=== PATIENT | male | born 1975 | race Caucasian/White ===

== ENCOUNTER 2016-07-08 02:25 | Emergency (ER) | payer SELFPAY ==
--- NOTE | ~2016-07-08 | CR133 ---
[facility] A Service of [facility] & [facility] RADIOLOGY TEXT RESULTS PATIENT: DELILAH ALLEN LOCATION: SED : 71 UNIT #: [id number] AGE: [address]: John Agosto MD SEX: M ORDER DR: [id number] [place] [id number] E MR#: [id number] Acc #: [id number] NAME: DELILAH ALLEN : 1975 SEX: M STUDY DATE/TIME: 07/08/2016 1:58 UNIT: SED ROOM: STUDY DESCRIPTION: CR Forearm 2 View Rt Attending Physician: John Agosto M.D. Ordering Physician: John Agosto M.D. Primary Care Physician: No Primary Care Physician MEDICAL IMAGING REPORT This report is preliminary unless electronic signature is present. EXAM Right forearm HISTORY Acute pain in forearm. This morning fell. 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 No acute fracture or dislocation. Soft tissues unremarkable. The visualized elbow joint appears normal. 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 No acute findings. Dictated by... Debbie Silveira M.D. THIS IS AN ELECTRONICALLY VERIFIED REPORT Debbie Silveira M.D. at 07/08/2016 5:55 AM AARON/vanessa TD: 07/08/2016 04:16 JOB #: [id number] MEDICAL IMAGING REPORT Page 1 of 1
[~2016-07-08 02:25] MED LIST: NO MEDICATIONS
== END 2016-07-08 03:00 | disposition home or self-care (01) ==
LOC: SED 02:25
DX: S51.811A Laceration without foreign body of right forearm, initial encounter (principal); S29.9XXA Unspecified injury of thorax, initial encounter; W01.0XXA Fall on same level from slipping, tripping and stumbling without subsequent striking against object, initial encounter
CPT/HCPCS: 12001; 73090; 99283